=== PATIENT | male | born 1980 | race Caucasian/White ===

== ENCOUNTER 2022-06-21 10:40 | Emergency (ER) | payer MEDICAID, SELFPAY ==
[2022-06-21 10:49] VITALS: BP 162/107; PULSE 99; RESP 18; TEMP 36.3; O2SAT 98; BMI 29.0
[2022-06-21 12:15] LABS: Basophils % 0.3 %; Eosinophils % 0.3 %; Lymphocytes # 0.5 10^3/uL (0.8-4.8); Lymphocytes % 12.5 %; Mean Corpuscular HGB Conc 34.9 g/dL (30.0-36.0); Mean Corpuscular Hemoglobin 34.1 pg (28.0-34.0); Mean Corpuscular Volume 97.7 fl (80-94); Mean Platelet Volume 9.4 fL (7.4-10.4); Monocytes # 0.2 10^3/uL (0.2-0.9); Monocytes % 5.7 %; Neutrophils # 2.98 10^3/uL (1.8-7.7); Neutrophils % 80.7 %; Nucleated Red Blood Cells % 0 %; Platelet Count 90 10^3/cmm (130-400); Red Cell Distribution Width 15.7 % (12.1-15.1); White Blood Count 3.7 10^3/uL (4.0-10.0)
--- NOTE | 2022-06-21 12:16 | CT_ITS ---
WS: [id number] CT ABDOMEN AND PELVIS WITH CONTRAST HISTORY: Abdominal Pain, nausea and vomiting. TECHNIQUE: Imaging performed of the abdomen and pelvis with IV contrast. Single phase imaging of the abdomen. Coronal and sagittal reformats are submitted. All CT scans at [facility] use at [address] one of these dose optimization techniques: automated exposure control; mA and/or kV adjustment per patient size (includes targeted exams where dose is matched to clinical indication); or iterative re construction. IV CONTRAST: Omnipaque 350; 100 mL IV. Oral contrast: No DLP: 589.63 mGy.cm COMPARISON: None available. Lower thorax: Partially calcified 10 mm nodule at the RIGHT lung base. Heart is normal size. No hiata l hernia. Liver/biliary system: Marked low attenuation throughout the liver from hepatic steatosis. Moderate en largement. Liver measures 20 cm in length. No bile duct dilatation. Normal portal vein. Gallbladder: Normal. No gallstones or wall thickening. No pericholecystic fluid. Pancreas: Normal size pancreas and pancreatic duct. No adjacent inflammation. Spleen: Normal size spleen. No mass or infarct. Adrenal glands: Normal. Right kidney: Normal. Left kidney: Normal. Aorta: Mild atherosclerosis with no aneurysm. Lymphadenopathy: None. Free fluid: None. GI tract: Stomach is normally distended with fluid. No small bowel obstruction. Appendix is not visua lized but there are no secondary findings of appendicitis. Very mild distal colon wall thickening wit h pericolonic edema. Abdominal wall: Unremarkable abdominal wall. No hernia. Pelvis: No free fluid in the pelvis. There is marked thickening of the urinary bladder wall. Even tho ugh the urinary bladder is not distended the wall thickening is probably significant. No air in the u rinary bladder. No free fluid in the pelvis or adenopathy. Bones: Unremarkable. CT/CT abdomen pelvis w con* [id number] IMPRESSION: 1. Severe diffuse urinary bladder wall thickening. Urinary bladder is not dist ended which can excessively bladder wall thickening but this is present signifi cant. Correlate for possible cystitis. 2. No renal obstruction. 3. Mild colitis involving the descending and sigmoid colon. 4. Marked hepatomegaly with severe hepatic steatosis.
[2022-06-21 12:23] LABS: Lactate (Lactic Acid level) 2.2 mmol/L (0.5-2.2)
[2022-06-21 12:29] LABS: Alanine Aminotransferase 126 U/L (0-41); Albumin Level 4.9 g/dL (3.5-5.2); Alkaline Phosphatase 105 U/L (40-130); Anion Gap 22.9 (5-19); Aspartate Amino Transferase 274 U/L (0-40); Blood Urea Nitrogen 6 mg/dL (6-20); Calcium 9.2 mg/dL (8.5-10.5); Carbon Dioxide 22 mmol/L (22-29); Chloride 97 mmol/L (98-107); Globulin 3.1 g/dL (1.3-4.6); Glomerular Filtration Rate 148.5 mL/min (90-130); Glucose 95 mg/dL (65-115); Osmolality Calculated 283 mOsm/kg (285-295); Potassium 3.9 mmol/L (3.5-5.1); Sodium 138 mmol/L (136-145); Total Bilirubin 0.7 mg/dL (0.15-1.2)
--- NOTE | 2022-06-21 12:35 | ED_ITS ---
HPI - General Adult General: Chief complaint: Nausea/Vomiting/Diarrhea Stated complaint: mold exposure, n/v Time Seen by Provider: 06/21/22 11:36 History of Present Illness: 41-year-old male presenting today with concerns for nausea vomiting and diarrhea. Patient notes he is an alcoholic. Drinking large amounts every day. Usually goes to [facility]. Was told last week that he was beginning to have renal failure. He signed out AMA from a possible transfer to this facility. He notes that since being home he said nausea and vomiting continuously. Patient also notes that he has had recent diagnosis of pancreatitis. For which she has severe abdominal pain. Try to drink alcohol today but was unsuccessful. He notes he does not feel like he is in withdrawals. But is increasingly shaky. Review of Systems General: Reports: 10 or more systems reviewed and unremarkable except in HPI and below Physical Exam Const: COMMON NORMALS: no acute distress, patient oriented x3 and alert GENERAL APPEARANCE: cooperative ORIENTATION/CONSCIOUSNESS: Yes awake, Yes oriented to person, Yes oriented to place and Yes oriented to time HENMT: COMMON NORMALS: normocephalic, atraumatic, external ears normal, Normal external nose present and moist oral mucous membranes HEAD & SCALP: normal to inspection, normocephalic and atraumatic NOSE: Normal external nose present GENERAL EAR: hearing grossly impaired EXTERNAL EAR: Yes external ears normal Eye: COMMON NORMALS: Equal, round and reactive pupils present, EOMs intact bilaterally, conjunctivae normal and no scleral icterus GENERAL EYE: appearan ce normal, both eyes and all related structures EYELID: eyelids normal CONJUNCTIVA: Yes conjunctivae normal SCLERA: sclerae normal PUPIL: Yes Equal, round and reactive pupils present Neck/C-Spine: COMMON NORMALS: full ROM, supple and no JVD GENERAL: Yes normal visual inspection Lymph: LYMPHATIC: no lymphadenopathy noted and no lymphedema noted Chest: COMMONS NORMALS: normal inspection of the chest Resp: COMMON NORMALS: normal respiratory effort, No retractions and No use of accessory muscles Cardio: COMMON NORMALS: no JVD, regular rate and regular rhythm RATE: r egular rate RHYTHM: regular rhythm GI: COMMON NORMALS: Normal to inspection, nondistended, normoactive bowel sounds present (Generalized tenderness to palpation.) : COMMON NORMALS: Yes no CVA tenderness BLADDER/KIDNEY EXAM: Yes no CVA t enderness Back/Pelvis: COMMON NORMALS: no CVA tenderness and thoracic and lumbar spine normal to inspection Extremity: COMMON NORMALS: normal to inspection, full ROM and capillary refill normal NARRATIVE EXTREMITY EXAM: Patient with resting tremor of bilateral upper extremities. GENERAL: Yes normal exam except as noted Neuro: COMMON NORMALS: patient oriented x3, CN's II-XII intact bilaterally, moves all extremities, no focal motor deficits, no sensory deficits noted and gait normal SENSORIUM/ORIENTATION: Yes alert, Yes oriented to person, Yes oriented to place and Yes oriented to time Psych: COMMON NORMALS: mental status grossly normal, Normal thought process present, cooperative and normal affect THOUGHT PROCESS: Normal thought process present Skin: COMMON NORMALS: no rashes or lesions noted and no wounds GENERAL SKIN EXAM: no rashes or lesions noted Course Vital Signs: Vital signs: Vital Signs Temperature 97.4 F L 06/21/22 10:49 Pulse Rate 99 06/21/22 10:49 Respiratory Rate 18 06/21/22 10:49 Blood Pressure 162/107 06/21/22 10:49 Pulse Oximetry 98 06/21/22 10:49 Oxygen Delivery Me thod 06/21/22 10:49 [facility] - General Adult Medical Decision Making 41-year-old male presenting today with nausea vomiting diarrhea recent diagnosis of pancreatitis. CT without evidence of pancreatitis. Patient's renal function is normal. Does have steatosis. In the setting of alcoholism. We will start patient on Augmentin for colitis. Also will give Zofran for home. Patient was given strict return precautions and recommended routine outpatient follow-up. Lab Data : 06/21/22 12:00 06/21/22 12:00 Radiology Impressions Abdomen/Pelvis CT 06/21/22 12:16 IMPRESSION: 1. Severe diffuse urinary bladder wall thickening. Urinary bladder is not distended which can excessively bladder wall thickening but this is present significant. Correlate for possible cystitis. 2. No renal obstruction. 3. Mild colitis involving the descending and sigmoid colon. 4. Marked hepatomegaly with severe hepatic steatosis. Laboratory Results WBC 3.7 10^3/uL (4.0-10.0) L 06/21/22 12:00 RBC 4.40 10^6/uL (4.1-5.3) 06/21/22 12:00 Hgb 15.0 g/dL (11.7-16.6) 06/21/22 12:00 Hct 43.0 % (42.0-52.0) 06/21/22 12:00 MCV 97.7 fl (80-94) H 06/21/22 12:00 MCH 34.1 pg (28.0-34.0) H 06/21/22 12:00 MCHC 34.9 g/dL (30.0-36.0) 06/21/22 12:00 RDW 15.7 % (12.1-15.1) H 06/21/22 12:00 Plt Count 90 10^3/cmm (130-400) L 06/21/22 12:00 MPV 9.4 fL (7.4-10.4) 06/21/22 12:00 Neut % (Auto) 80.7 % 06/21/22 12:00 Lymph % (Auto) 12.5 % 06/21/22 12:00 [place] % (Auto) 5.7 % 06/21/22 12:00 Eos % (Auto) 0.3 % 06/21/22 12:00 Baso % (Auto) 0.3 % 06/21/22 12:00 Neut # (Auto) 2.98 10^3/uL (1.8-7.7) 06/21/22 12:00 Lymph # (Auto) 0.5 10^3/uL (0.8-4.8) L 06/21/22 12:00 [place] # (Auto) 0.2 10^3/uL (0.2-0.9) 06/21/22 12:00 Eos # (Auto) 0.0 10^3/uL (0.0-0.8) 06/21/22 12:00 Baso # (Auto) 0.0 10^3/uL (0.0-0.1) 06/21/22 12:00 Nucleated RBC % (auto) 0 % 06/21/22 12:00 Nucleated RBCs # 0.0 /100WBC 06/21/22 12:00 Sodium 138 mmol/L (136-145) 06/21/22 12:00 Potassium 3.9 mmol/L (3.5-5.1) 06/21/22 12:00 Chloride 97 mmol/L (98-107) L 06/21/22 12:00 Carbon Dioxide 22 mmol/L (22-29) 06/21/22 12:00 Anion Gap 22.9 (5-19) H 06/21/22 12:00 BUN 6 mg/dL (6-20) 06/21/22 12:00 Creatinine 0.6 mg/dL (0.7-1.2) L 06/21/22 12:00 GFR Calculation 148.5 mL/min (90-130) H 06/21/22 12:00 Glucose 95 mg/dL (65-115) 06/21/22 12:00 Calculated Osmolality 283 mOsm/kg (285-295) L 06/21/22 12:00 Lactate 2.2 mmol/L (0.5-2.2) 06/21/22 12:00 Calcium 9.2 mg/dL (8.5-10.5) 06/21/22 12:00 Total Bilirubin 0.7 mg/dL (0.15-1.2) 06/21/22 12:00 AST 274 U/L (0-40) H 06/21/22 12:00 ALT 126 U/L (0-41) H 06/21/22 12:00 Alkaline Phosphatase 105 U/L (40-130) 06/21/22 12:00 Total Protein 8.0 g/dL (6.6-8.7) 06/21/22 12:00 Albumin 4.9 g/dL (3.5-5.2) 06/21/22 12:00 Globulin 3.1 g/dL (1.3-4.6) 06/21/22 12:00 Discharge Plan Discharge Patient Disposition: Home Clinical Impression: Colitis Condition: Stable Prescriptions: New amoxicillin-pot clavulanate 875-125 mg tablet 1 tab PO Q12H 7 Days Qty: 14 0RF ondansetron 8 mg tablet,disintegrating 8 mg PO Q8H PRN (Reason: nausea and vomiting) 5 Days Qty: 30 0RF No Action amoxicillin 500 mg capsule 500 mg PO TID Rx Instructions: for 10 days (rx filled 06/06/22) lisinopril-hydrochlorothiazide 20-12.5 mg tablet 1 tab PO QAM acetaminophen-codeine 300-30 mg tablet 1 tab PO Q4H PRN (Reason: Pain) gemfibrozil 600 mg tablet 600 mg PO QAM pantoprazole 40 mg tablet,delayed release (DR/EC) 40 mg PO DAILY activated charcoal 200 mg Capsule 200 mg PO DAILY potassium gluconate 595 mg (99 mg) Tablet 1,190 mg PO DAILY Discharge Orders: Discharge ED (Routine); Ordered 06/21/22 Ordered By: Titi Estes Patient Instructions: Colitis (ED) Coding Level of Care Code ED Curriculum Director for Sam Fwd Exam Comprehensive
[2022-06-21] MEDS: chlordiazePOXIDE 25 mg Capsule PO (12:37)
[2022-06-21] MEDS: sodium chloride 0.9% 1,000 ML 999 ML IV (12:38)
[2022-06-21] MEDS: iohexol 350 mg/mL 100 mL Btl IV (13:01)
[2022-06-21 15:33] VITALS: BP 188/98; PULSE 88
== END 2022-06-21 15:35 | disposition home or self-care (01) ==
PROVIDERS: Physician Assistant; Emergency Provider Emergency Medicine
DX: K52.9 Noninfective gastroenteritis and colitis, unspecified (principal)
CPT/HCPCS: 36415; 74177; 80053; 83605; 85025; 99285; J7030; Q9967